=== PATIENT | male | born 1980 | race Caucasian/White ===

== ENCOUNTER 2020-09-07 13:08 | Emergency (ER) | payer OTHER ==
[~2020-09-07] VITALS: Ht 190.5 cm; Wt 90.7 kg
[~2020-09-07 13:08] MED LIST: ATROVENT15 ML NS; AZITHROMYCIN 2250 MG PO; NORCO 5-325 TA1 EACH PO
[2020-09-07] MEDS ORDERED: ALLEGRA-D 12 H1 EAC1 PO (13:19)
[2020-09-07] MEDS ORDERED: AFRIN15 M1 NASAL (13:20)
[2020-09-07 13:44] LABS: ABSOLUTE BASOPHILS 0.1 thou/uL (0.0-0.2); ABSOLUTE EOSINOPHILS 0.1 thou/uL (0.0-0.7); ABSOLUTE LYMPHOCYTES 2.2 thou/uL (0.8-5.3); ABSOLUTE MONOCYTES 0.4 thou/uL (0.0-1.2); ABSOLUTE NEUTROPHILS 3.3 thou/uL (1.6-8.1); BASOPHILS 0.9 %; EOSINOPHILS 2.1 %; HEMATOCRIT 42.6 % (42.0-52.0); HEMOGLOBIN 15.3 gm/dL (14.0-18.0); LYMPHOCYTES 36.1 %; MCH 30.2 pg (26.0-34.0); MCHC 35.8 g/dL (28.0-37.0); MCV 84.2 fL (80.0-100.0); MONOCYTES 7.2 %; MPV 8.2 fl. (7.2-11.1); NUCLEATED RBCS 0 /100WBC; PLATELET COUNT* 233 thou/uL (150-400); POLYS 53.7 %; RBC 5.06 mil/uL (4.50-6.00); RDW-CV 13.6 % (10.5-14.5); WBC 6.2 thou/uL (4.0-11.0)
[2020-09-07 13:49] LABS: CALCIUM 9.1 mg/dL (8.5-10.1); CREATININE 1.2 mg/dL (0.6-1.3); POTASSIUM 3.5 mmol/L (3.5-5.1)
[2020-09-07 13:53] LABS: ALBUMIN 4.2 g/dL (3.4-5.0); TOTAL BILIRUBIN 0.9 mg/dL (<0.1-1.0); TOTAL PROTEIN 7.7 g/dL (6.4-8.2)
--- NOTE | 2020-09-07 15:17 | EKG ---
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: [facility] : 1980 Requested By: Augie Lee Order Number: [id number] MD: Beny Calabrese Measurements Intervals [place] Rate: 95 P: 73 [place]: 139 QRS: 73 QRSD: 99 T: 54 QT: 363 QTc: 457 Interpretive Statements Sinus rhythm Borderline T wave abnormalities Baseline wander in [place](s) V1,V3,V4,V5,V6 No previous ECG available for comparison Electronically Signed On 09-07-2020 15:17:33 BUSINESS LAW TEACHER by Beny Calabrese [email or web address] <ELECTRONICALLY SIGNED> By: Beny Calabrese MD, FAC 09/07/20 1517 1322 1322 Beny Calabrese MD, [facility] /EPI
[2020-09-07] MEDS ORDERED: AUGMENTIN 875-1 EACH PO (16:13)
[2020-09-07 16:20] VITALS: BP 122/96
== END 2020-09-07 16:20 | disposition home or self-care (01) ==
LOC: M.ERS 13:08
PROVIDERS: Family Medicine
DX: J32.9 Chronic sinusitis, unspecified (principal); R42 Dizziness and giddiness; R53.1 Weakness; Z20.828 Contact with and (suspected) exposure to other viral communicable diseases; I10 Essential (primary) hypertension

== ENCOUNTER 2020-11-26 12:06 | Emergency (ER) | payer OTHER ==
[~2020-11-26] VITALS: Ht 190.5 cm; Wt 88.5 kg
[~2020-11-26 12:06] MED LIST changes: +AFRIN15 M1 NASAL; +ALLEGRA-D 12 H1 EAC1 PO; +AUGMENTIN 875-1 EACH PO
[2020-11-26] MEDS ORDERED: LOSARTAN-HCTZ1 EAC3 PO (12:13)
[2020-11-26 12:42] LABS: ABSOLUTE EOSINOPHILS 0.1 thou/uL (0.0-0.7); ABSOLUTE LYMPHOCYTES 2.1 thou/uL (0.8-5.3); ABSOLUTE MONOCYTES 0.5 thou/uL (0.0-1.2); ABSOLUTE NEUTROPHILS 2.7 thou/uL (1.6-8.1); BASOPHILS 0.5 %; HEMATOCRIT 41.2 % (42.0-52.0); HEMOGLOBIN 14.3 gm/dL (14.0-18.0); LYMPHOCYTES 39.3 %; MCH 29.8 pg (26.0-34.0); MCHC 34.6 g/dL (28.0-37.0); MCV 86.1 fL (80.0-100.0); MONOCYTES 8.4 %; MPV 8.1 fl. (7.2-11.1); NUCLEATED RBCS 0 /100WBC; PLATELET COUNT* 214 thou/uL (150-400); POLYS 49.8 %; RBC 4.79 mil/uL (4.50-6.00); RDW-CV 13.7 % (10.5-14.5); WBC 5.4 thou/uL (4.0-11.0)
[2020-11-26 12:54] LABS: CALCIUM 8.9 mg/dL (8.5-10.1); CREATININE 1.2 mg/dL (0.6-1.3); POTASSIUM 3.5 mmol/L (3.5-5.1)
[2020-11-26 12:55] LABS: APTT 24.2 Seconds (25.0-31.3); PROTIME 10.3 Seconds (9.20-11.50)
[2020-11-26 13:04] LABS: ALBUMIN 4.6 g/dL (3.4-5.0); MAGNESIUM 2.2 mg/dL (1.8-2.4); TOTAL BILIRUBIN 1.2 mg/dL (<0.1-1.0); TOTAL PROTEIN 8.2 g/dL (6.4-8.2)
--- NOTE | 2020-11-26 14:51 | EKG ---
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
--- NOTE | 2020-11-26 14:52 | EKG ---
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
[2020-11-26 15:58] VITALS: BP 127/84
== END 2020-11-26 15:59 | disposition home or self-care (01) ==
LOC: M.ERS 12:06
PROVIDERS: Emergency Medicine Emergency Medical Services
DX: R07.89 Other chest pain (principal); R20.2 Paresthesia of skin; R06.02 Shortness of breath; I10 Essential (primary) hypertension; Z79.899 Other long term (current) drug therapy; F17.210 Nicotine dependence, cigarettes, uncomplicated